=== PATIENT | female | born 2000 | race African-American/Black ===

== ENCOUNTER 2022-06-22 20:30 | Emergency (ER) | payer MEDICAID, OTHER ==
[~2022-06-22] VITALS: Ht 165.1 cm; Wt 65.0 kg
[2022-06-22 20:54] VITALS: BP 122/85
[2022-06-23] MEDS ORDERED: IBUPROFEN 600MG TABLET PO ONE (00:15)
[2022-06-23] MEDS ORDERED: ACETAMINOPHEN 325MG TABLET PO ONE (01:30)
== END 2022-06-23 01:45 | disposition home or self-care (01) ==
LOC: ER 20:30
DX: S80.11XA Contusion of right lower leg, initial encounter (principal); R51.9 Headache, unspecified; M25.561 Pain in right knee; V49.49XA Driver injured in collision with other motor vehicles in traffic accident, initial encounter; Y93.89 Activity, other specified; Y92.488 Other paved roadways as the place of occurrence of the external cause
CPT/HCPCS: 73562; 73590; 81025; 99284